=== PATIENT | male | born 1990 | race Caucasian/White ===

== ENCOUNTER 2018-04-26 13:45 | Emergency (ER) | payer SELFPAY ==
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
[2018-04-26 15:35] VITALS: BP 140/94; O2SAT 99
--- NOTE | 2018-04-27 16:20 | EKG ---
Test Date: 2018-04-26 Test Time: 13:55:02 Landing Worker: JOHN MEASUREMENT RESULTS: Intervals: Rate: 103 IL: 156 QRSD: 98 QT: 338 QTc: 442 [place]: P: 21 IL: 156 QRS: 90 T: 51 INTERPRETIVE STATEMENTS: Sinus tachycardia Rightward axis ST elevation, probably due to early repolarization Borderline ECG No previous ECG available for comparison Electronically Signed On 04-27-18 16:15:01 CDT by Jose Santiago
== END 2018-04-26 15:24 | disposition left against medical advice (07) ==
LOC: ER 13:45
DX: Z53.21 Procedure and treatment not carried out due to patient leaving prior to being seen by health care provider (principal)
CPT/HCPCS: 93005; 99283

== ENCOUNTER 2022-04-22 16:53 | Emergency (ER) | payer SELFPAY ==
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
[2022-04-22 18:00] LABS: Absolute Lymphocytes (CBC) 4.5 K/uL (0.7-4.9); Hematocrit 44.8 % (39.6-49.0); Lymphocytes % 29.2 % (15.3-44.8); MCV 83.7 fL (80-100); MPV 7.3 fL (7.6-11.3); RBC Red Blood Cell Count 5.35 M/uL (4.33-5.43)
--- NOTE | 2022-04-22 18:03 | RAD REPORT ---
EXAM DESCRIPTION: RAD - Chest Single View - 04/22/2022 5:51 pm CLINICAL HISTORY: CHEST PAIN COMPARISON: No comparisons FINDINGS: Lines: None. Lungs: No evidence of edema or pneumonia. Pleural: No significant pleural effusions or pneumothorax. Cardiac: The heart size is within normal limits. Bones: No acute fractures. Other: IMPRESSION: No acute cardiopulmonary disease.
[2022-04-22 18:06] LABS: Protime INR 1.04
[2022-04-22 18:16] LABS: ALT/SGPT 33 U/L (12-78); AST/SGOT 29 U/L (15-37); Albumin 3.8 g/dL (3.4-5.0); Alkaline Phosphatase 94 U/L (45-117); BUN Blood Urea Nitrogen 25 mg/dL (7-18); Bicarbonate 25 mmol/L (21-32); Bilirubin Total 0.2 mg/dL (0.2-1.0); Glomerular Filtration Rate 97 ml/min (=/>90); Glucose Level 112 mg/dL (74-106); Potassium 4.3 mmol/L (3.5-5.1); Protein, Total 8.4 g/dL (6.4-8.2); Sodium Level 137 mmol/L (136-145)
[2022-04-22 18:17] LABS: Bilirubin Direct < 0.1 mg/dL (0-0.2); CKMB Creatine Kinase MB 2.2 ng/mL (1.0-3.6); Creatine Phosphokinase 258 U/L (39-308); Lipase 137 U/L (73-393); Magnesium 2.1 mg/dL (1.8-2.4); NT PRO-BNP < 5 pg/mL (<125); Troponin High Sensitivity 3.3 pg/mL (<58.9)
--- NOTE | 2022-04-22 18:20 | RAD REPORT ---
EXAM DESCRIPTION: CT - Head Brain Wo Cont - 04/22/2022 6:11 pm CLINICAL HISTORY: dizziness, recurrent headaches, syncope COMPARISON: No comparisons TECHNIQUE: All CT scans are performed using dose optimization technique as appropriate and may inclu de automated exposure control or mA/KV adjustment according to patient size. FINDINGS: No intracranial hemorrhage, hydrocephalus or extra-axial fluid collection.No areas of brai n edema or evidence of midline shift. The paranasal sinuses and mastoids are clear. The calvarium is intact. IMPRESSION: No acute intracranial abnormality.
[2022-04-22] MEDS ORDERED: NA CHLORIDE 0.9% 1,000 ML ONE (18:58)
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
[2022-04-22 21:42] VITALS: TEMP 98.8
[2022-04-22 22:44] VITALS: BP 131/73; O2SAT 95
--- NOTE | 2022-04-23 15:12 | EKG ---
Test Date: 2022-04-22 Test Time: 17:09:53 Electric Lift Truck Driver: MEASUREMENT RESULTS: Intervals: Rate: 104 NM: 148 QRSD: 104 QT: 346 QTc: 454 Carbon: P: 27 NM: 148 QRS: 111 T: 29 INTERPRETIVE STATEMENTS: Sinus tachycardia Left posterior fascicular block Abnormal ECG Compared to ECG 04/26/2018 13:55:02 Left posterior fascicular block now present Right-axis deviation no longer present ST (T wave) deviation no longer present Early repolarization no longer present Electronically Signed On 04-23-22 15:11:40 CDT by Chilo Arvizu
== END 2022-04-22 20:27 | disposition home or self-care (01) ==
LOC: ER 16:53
DX: R55 Syncope and collapse (principal); R07.9 Chest pain, unspecified; F17.210 Nicotine dependence, cigarettes, uncomplicated
CPT/HCPCS: 36415; 70450; 71045; 80048; 80076; 82550; 82553; 83690; 83735; 83880; 84484; 85025; 85379; 85610; 85730; 93005; J7030

== ENCOUNTER 2024-01-26 13:16 | Emergency (ER) | payer SELFPAY ==
[2024-01-26] MEDS ORDERED: ALBUTEROL 2.5 MG/3 ML NEB SOL ONE (13:42)
[2024-01-26] MEDS ORDERED: IPRATROPIUM BROM 0.5MG/2.5ML ONE (13:42)
[2024-01-26] MEDS ORDERED: NA CHLORIDE 0.9% 1,000 ML ONE (13:43)
[2024-01-26] MEDS ORDERED: METHYLPREDNISOLONE 125 MG INJ ONE (13:43)
[2024-01-26 14:07] LABS: Absolute Basophils 0.1 K/uL (0-0.5); Absolute Eosinophils 0.3 K/uL (0-0.5); Absolute Lymphocytes (CBC) 4.9 K/uL (0.7-4.9); Absolute Monocytes 0.9 K/uL (0.1-1.3); Absolute Neutrophil 3.1 K/uL (1.8-8.0); Eosinophils % 3.5 % (0-4.4); Hematocrit 44.6 % (39.6-49.0); Hemoglobin 15.1 g/dL (13.6-17.9); Lymphocytes % 52.5 % (15.3-44.8); MCH 28.1 pg (27.0-35.0); MCHC 33.8 g/dL (32.0-36.0); MCV 83.1 fL (80-100); MPV 7.1 fL (7.6-11.3); Monocytes % 9.8 % (3.3-12.3); Neutrophils % 33.2 % (41.7-73.7); Nucleated Red Blood Cells % 0.3 % (0-0); Platelets 402 thou/uL (152-406); RBC Red Blood Cell Count 5.37 M/uL (4.33-5.43); Red Cell Distribution Width 14.8 % (12.1-15.2)
[2024-01-26 14:14] LABS: SARS-CoV-2 Antigen CONTROL BLUE LINE VIS/BG OK; SARS-CoV-2 Antigen Rapid Res Negative (Negative)
[2024-01-26 14:20] LABS: Anion Gap 8.1 mEq/L (5.0-15.0); Magnesium 2.2 mg/dL (1.6-2.4); Potassium 4.1 mEq/L (3.5-5.1)
--- NOTE | 2024-01-26 15:24 | RAD REPORT ---
EXAM DESCRIPTION: Bettina Mims (2 Views)01/26/2024 3:16 pm CLINICAL HISTORY: sob COMPARISON: 2021 FINDINGS: The lungs appear clear of acute infiltrate. The heart is borderline enlarged Fully within the posterior subcutaneous tissues lower chest IMPRESSION: No acute abnormalities displayed
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
[2024-01-26 16:56] VITALS: BP 110/66; TEMP 98.3; O2SAT 99
== END 2024-01-26 15:39 | disposition home or self-care (01) ==
LOC: ER 13:16
DX: J06.9 Acute upper respiratory infection, unspecified (principal); Z11.52 Encounter for screening for COVID-19
CPT/HCPCS: 36415; 71046; 80048; 83735; 85025; 87804; 87811; 94640; 96374; 99285; J2919; J7030; J7613; J7644